=== PATIENT | female | born 1945 | race Caucasian/White ===

== ENCOUNTER 2017-06-07 17:46 | Emergency (ER) | payer OTHER ==
[~2017-06-07] VITALS: Ht 139.7 cm; Wt 65.1 kg
[2017-06-07 18:03] VITALS: BP 136/80
--- NOTE | 2017-06-07 19:30 | NUR ---
71/F C/O 04/14 PAIN TO RT SHOULDER/ARM S/P CARRYING HER GRANDDAUGHTER TODAY. PT STATES " I HEAR CRACK ON MY SHOULDER". MILD EDEMA NOTED ON RT SHOULDER WITH BRUISES TO RAC NOTED. +[facility] WITH LIMITED ROM D/T PAIN. PMH: DM, HTN. DENIES OTC AT HOME FOR PAIN.
[2017-06-07] MEDS ORDERED: HYDROcodone/APAP 5/325 MG 1 TAB TAB PO ONE (19:35)
[2017-06-07] MEDS ORDERED: KETOROLAC 30 MG/ML VIAL IM ONE (19:35)
--- NOTE | 2017-06-07 20:15 | NUR ---
Patient discharged with v/s stable. Written and verbal after care instructions given and explained. Patient alert, oriented and verbalized understanding of instructions. Ambulatory with steady gait. All questions addressed prior to discharge. ID band removed. Patient advised to follow up with PMD. Rx of NAPROSYN 500MG ONE TAB 2 TIMES A DAY PRN PRN given. Patient educated on indication of medication including possible reaction and side effects. Opportunity to ask questions provided and answered.
[2017-06-07 20:28] VITALS: BP 132/78
== END 2017-06-07 20:15 | disposition home or self-care (01) ==
LOC: MED 17:46
DX: M66.821 Spontaneous rupture of other tendons, right upper arm (principal)
CPT/HCPCS: 73030; 73060; 73080; 96372; 99284; J1885

== ENCOUNTER 2020-05-27 14:08 | Emergency (ER) | payer OTHER ==
[~2020-05-27] VITALS: Ht 154.9 cm; Wt 65.8 kg
[2020-05-27 14:10] VITALS: BP 152/73
--- NOTE | 2020-05-27 14:22 | NUR ---
AMBULATED TO BED 7
--- NOTE | 2020-05-27 14:32 | NUR ---
74 Y/O FEMALE PRESENTS TO ER WITH C/O NECK, AND LBP X 8 DAYS. 9/10 PAIN. LOWER BACK IS TTP, ALSO C/O LEFT POSTERIOR LUNG PAIN. PT DENIES INJURY/TRAUMA TO AREA, SOB, DYSPNEA, DYSURIA, FEVER, COUGH, N/V/D, CHILLS, HEMATURIA, OR RADIATING PAIN TO ABDOMEN. PT IS CITIZEN OF [place] SPEAK[place]. A&O X4, VSS, R/R EQUAL, AND UNLABORED. SIDE RAIL X1, BED IN LOW POSITION, WILL CONTINUE TO MONITOR. NKDA PMH: HTN; DM; HYPERLIPIDEMIA
[2020-05-27] MEDS ORDERED: KETOROLAC 60 MG/2 ML VIAL IM ONE (15:25)
--- NOTE | 2020-05-27 15:32 | NUR ---
PT RESTING IN BED TALKING ON PHONE. VSS. R/R EQUAL, AND UNLABORED. SIDE RAIL X1, BED IN LOW POSITION, WILL CONTINUE TO MONITOR.
[2020-05-27] MEDS ORDERED: MORPHINE SULFATE 4 MG/ML SYR IM ONE (16:10)
--- NOTE | 2020-05-27 16:20 | NUR ---
Patient discharged with v/s stable. Written and verbal after care instructions given and explained. Patient alert, oriented and verbalized understanding of instructions. WHEELCHAIR TO LOBBY, TO WAIT FOR GRANDDAUGHTER. All questions addressed prior to discharge. ID band removed. Patient advised to follow up with PMD. Rx of MOTRIN, NORCO, CIPRO given. Patient educated on indication of medication including possible reaction and side effects. Opportunity to ask questions provided and answered.
[2020-05-27 16:34] VITALS: BP 152/73
== END 2020-05-27 16:20 | disposition home or self-care (01) ==
LOC: MED 14:08
DX: N12 Tubulo-interstitial nephritis, not specified as acute or chronic (principal); M54.2 Cervicalgia; E11.9 Type 2 diabetes mellitus without complications; I10 Essential (primary) hypertension
CPT/HCPCS: 81002; 87086; 96372; 99284; J1885; J2270

== ENCOUNTER 2020-12-11 13:34 | Emergency (ER) | payer OTHER ==
[~2020-12-11] VITALS: Ht 149.9 cm; Wt 68.5 kg
[2020-12-11 13:47] VITALS: BP 150/73
--- NOTE | 2020-12-11 13:51 | NUR ---
PT AMBULATED TO BED 8.
--- NOTE | 2020-12-11 14:09 | NUR ---
75 Y/O F BIB SELF FROM HOME, PATIENT PRESENTS TO ED WITH L FOOT PAIN THAT STARTED 4 DAYS AGO. PT STATES SHE OPENED THE FRIDGE AND HAD FROZEN CHICKEN THAT FELL ONTO HER FOOT. UPON INSEPCTION, PT IS ABLE TO AMBULATE WITH CANE, AMBLE TO FLEX AND EXTEND EXTREMITIES, SWELLING, REDNESS, AND BRUISING ON DIGITS AND ANKLE. PT CAP REFILL <3 SECONDS, PEDAL PULSES PRESENT. PT STATES SHE HAS NUMBING SENSATION IN HER TOES. DENIES N/V/D; SKIN IS PINK/WARM/DRY; AAOX4 WITH EVEN AND STEADY GAIT; LUNGS CLEAR BL; HR EVEN AND REGULAR; PT DENIES ANY FEVER, CP, SOB, OR COUGH AT THIS TIME; PATIENT STATES PAIN OF 9/10 AT THIS TIME; VSS; PATIENT POSITIONED FOR COMFORT; HOB ELEVATED; BEDRAILS UP X2; BED DOWN. ER MD MADE AWARE OF PT STATUS. PMH: DM2, ARTHRITIS, HIGH CHOLESTROL, HTN NKA
[2020-12-11] MEDS ORDERED: ACET-10509 PO (15:08)
[2020-12-11] MEDS: KETOROLAC 30 MG/ML VIAL IM ONE (15:27)
--- NOTE | 2020-12-11 15:30 | NUR ---
PT'S LEFT LOWER EXTREMITY WAS SPLINTED WITH A FABRICATED POSTERIOR SHORT LEG SPLINT. PT WAS GIVEN CRUTCHES AND A DEMONSTRATION ON HOW TO USE IT. PT UNDERSTOOD AND DEMONSTRATED HOW TO USE THE CRUTCHES SAFELY. HUDSON NOTIFIED.
[2020-12-11 15:34] VITALS: BP 150/73
--- NOTE | 2020-12-11 15:34 | NUR ---
Patient discharged with v/s stable. Written and verbal after care instructions given and explained. Patient alert, oriented and verbalized understanding of instructions. Ambulatory with to car. All questions addressed prior to discharge. ID band removed. Patient advised to follow up with PMD. Rx of ACETAMINOPHEN given. Patient educated on indication of medication including possible reaction and side effects. Opportunity to ask questions provided and answered.
== END 2020-12-11 15:29 | disposition home or self-care (01) ==
LOC: MED 13:34
DX: S90.32XA Contusion of left foot, initial encounter (principal); E11.9 Type 2 diabetes mellitus without complications; I10 Essential (primary) hypertension; E78.00 Pure hypercholesterolemia, unspecified; W22.8XXA Striking against or struck by other objects, initial encounter; Y93.89 Activity, other specified; Y92.89 Other specified places as the place of occurrence of the external cause; Y99.8 Other external cause status
CPT/HCPCS: 29515; 73630; 96372; 99283; J1885

== ENCOUNTER 2020-12-18 13:45 | Emergency (ER) | payer OTHER ==
[~2020-12-18] VITALS: Ht 147.3 cm; Wt 74.4 kg
[~2020-12-18 13:45] MED LIST: ACET-10509 PO
[2020-12-18 13:53] VITALS: BP 149/81
[2020-12-18] MEDS ORDERED: CEPH-588 PO (14:08)
[2020-12-18 14:13] VITALS: BP 149/81
== END 2020-12-18 14:14 | disposition home or self-care (01) ==
LOC: MED 13:45
DX: L03.115 Cellulitis of right lower limb (principal); E11.9 Type 2 diabetes mellitus without complications; I10 Essential (primary) hypertension; Z79.899 Other long term (current) drug therapy
CPT/HCPCS: 99283

== ENCOUNTER 2021-01-27 21:56 | Emergency (ER) | payer OTHER ==
[~2021-01-27] VITALS: Ht 149.9 cm; Wt 64.4 kg
[~2021-01-27 21:56] MED LIST changes: +CEPH-588 PO
[2021-01-27 22:15] VITALS: BP 152/79
--- NOTE | 2021-01-27 22:18 | NUR ---
TO LOBBY A/W BED AMBULATORY
--- NOTE | 2021-01-27 23:05 | NUR ---
PT BIB SELF FOR C/O HEMATURIA AND FREQUENCY X 1 DAY. PT DENIES PAIN OR DISCOMFORT TO ABDOMEN TO FLANK PAIN. PT STATES SHE IS URINATING MORE THAN USUAL AND FEELS A "TINGLING" WHEN SHE URINATES. PT DENIES FEVER, CHILLS, N/V/D, CP OR SOB. HX: DM, HTN, HIGH CHOLESTEROL ALLERGIES: NKA
--- NOTE | 2021-01-27 23:15 | NUR ---
ACCUCHECK: BLOOD SUGAR 127.
[2021-01-28] MEDS ORDERED: cefTRIAXone 1,000 MG in LIDOCAINE MPF 1% 2.1 ML IM ONE (01:10)
[2021-01-28] MEDS ORDERED: KETOROLAC 60 MG/2 ML VIAL IM ONE (01:10)
[2021-01-28] MEDS ORDERED: PHEN-1877 PO (01:18)
[2021-01-28] MEDS ORDERED: NITR100C7 PO (01:18)
[2021-01-28] MEDS ORDERED: LIDOCAINE MPF 1% 5 ML ONE (01:32)
[2021-01-28] MEDS ORDERED: cefTRIAXone 1,000 MG VIAL ONE (01:32)
[2021-01-28 01:37] LABS: BILIRUBIN,URINE NEGATIVE (NEGATIVE); BLOOD, URINE 3+ (NEGATIVE); LEUKOCYTE ESTERASE ,URINE 2+ (NEGATIVE); NITRITE, URINE POSITIVE (NEGATIVE); PH,URINE 7.5 (5.0-9.0); UGLUCOSE TRACE (NEGATIVE)
[2021-01-28 01:38] LABS: APPEARANCE,URINE BLOODY (CLEAR); COLOR,URINE BLOODY (YELLOW)
[2021-01-28 01:40] LABS: RBC,URINE TOO NUMEROUS TO COUN /HPF (0-5)
--- NOTE | 2021-01-28 01:43 | NUR ---
d/c by Dr. Vazquez with VSS and rx of nitrofurantoin and pyridium
== END 2021-01-28 01:44 | disposition home or self-care (01) ==
LOC: MED 21:56
DX: N39.0 Urinary tract infection, site not specified (principal); E78.00 Pure hypercholesterolemia, unspecified; E11.9 Type 2 diabetes mellitus without complications; I10 Essential (primary) hypertension; Z79.899 Other long term (current) drug therapy
CPT/HCPCS: 81001; 87086; 96372; 99284; J0696; J1885; J2001

== ENCOUNTER 2021-06-14 12:47 | Emergency (ER) | payer OTHER ==
[~2021-06-14] VITALS: Ht 149.9 cm; Wt 69.4 kg
[~2021-06-14 12:47] MED LIST changes: +NITR100C7 PO; +PHEN-1877 PO
[2021-06-14 13:06] VITALS: BP 144/83
[2021-06-14 15:03] LABS: BASOPHILS % (AUTO) 0.4 % (0.0-2.0); EOSINOPHILS # (AUTO) 0.1 K/uL (0-0.4); EOSINOPHILS % (AUTO) 0.5 % (0.0-4.0); HEMATOCRIT 38.4 % (36-48); HEMOGLOBIN 12.9 g/dL (12.0-16.0); LYMPHOCYTES # (AUTO) 1.3 K/uL (2.5-16.5); LYMPHOCYTES % (AUTO) 10.7 % (20.5-51.1); MEAN CORPUSCULAR HEMOGLOBIN 31 pg (27-31); MEAN CORPUSCULAR HGB CONC 34 g/dL (33-37); MEAN CORPUSCULAR VOLUME 93.2 fL (80-94); MONOCYTES # (AUTO) 0.6 K/uL (0.8-1.0); MONOCYTES % (AUTO) 5.2 % (1.7-9.3); NEUTROPHILS # (AUTO) 10.1 K/uL (1.8-7.7); NEUTROPHILS % (AUTO) 83.2 % (42.2-75.2); PLATELET COUNT (AUTO) 375 K/uL (140-450); RED BLOOD CELL COUNT(AUTO) 4.12 MIL/uL (4.20-5.40); RED CELL DISTRIBUTION WIDTH 12.5 % (11.6-13.7); WHITE BLOOD COUNT (AUTO) 12.2 K/uL (4.8-10.8)
[2021-06-14 15:28] LABS: ALBUMIN 4.2 g/dL (3.4-5.0); ANION GAP 13.6 (8-16); ASPARTATE AMINOTRANSFERASE 21 U/L (15-37); CARBON DIOXIDE 26.7 mmol/L (21-32); CHLORIDE 99 mmol/L (98-107); CREATININE 0.9 mg/dL (0.6-1.3); GLUCOSE 129 mg/dL (74-106); LIPASE 260 U/L (73-393); POTASSIUM 4.3 mmol/L (3.5-5.1); SODIUM SERUM 135 mmol/L (136-145); TOTAL BILIRUBIN 0.7 mg/dL (0.0-1.0); UREA NITROGEN, BLOOD 20 mg/dL (7-18)
[2021-06-14] MEDS ORDERED: ACET-2619 PO (17:48)
[2021-06-14] MEDS ORDERED: IBUP-2213 PO (17:48)
[2021-06-14 17:55] VITALS: BP 121/70
== END 2021-06-14 17:55 | disposition home or self-care (01) ==
LOC: MED 12:47
DX: M25.512 Pain in left shoulder (principal); E11.9 Type 2 diabetes mellitus without complications; I10 Essential (primary) hypertension; E78.5 Hyperlipidemia, unspecified; D49.6 Neoplasm of unspecified behavior of brain
CPT/HCPCS: 36415; 71045; 73030; 80053; 83690; 84484; 85025; 93005; 99285; Q0092

== ENCOUNTER 2023-07-18 20:32 | Inpatient (IN) | payer OTHER ==
[~2023-07-18] VITALS: Ht 154.9 cm; Wt 67.6 kg
[~2023-07-18 20:32] MED LIST changes: +ACET-2619 PO; +IBUP-2213 PO
[2023-07-18 20:47] VITALS: BP 166/74; PULSE 118; RESP 19; TEMP 99.8; O2SAT 99
[2023-07-18] MEDS ORDERED: cefTRIAXone 1,000 MG in DEXT 5% MINI-BAG PLUS 50 ML IV ONE (21:25)
[2023-07-18] MEDS ORDERED: NACL 0.9% 1,000 ML IV SCH (21:25)
[2023-07-18] MEDS ORDERED: cefTRIAXone 1,000 MG VIAL ONE (21:38)
[2023-07-18] MEDS ORDERED: ACETAMINOPHEN EXTRA STRENGTH 500 MG TAB PO ONE (21:45)
[2023-07-18 21:51] LABS: BASOPHILS % (AUTO) 0.1 % (0.0-2.0); HEMATOCRIT 34.6 % (36-48); HEMOGLOBIN 11.6 g/dL (12.0-16.0); LYMPHOCYTES # (AUTO) 0.4 K/uL (2.5-16.5); LYMPHOCYTES % (AUTO) 2.9 % (20.5-51.1); MEAN CORPUSCULAR HEMOGLOBIN 31 pg (27-31); MEAN CORPUSCULAR HGB CONC 34 g/dL (33-37); MEAN CORPUSCULAR VOLUME 92.7 fL (80-94); MONOCYTES # (AUTO) 0.4 K/uL (0.8-1.0); NEUTROPHILS # (AUTO) 12.4 K/uL (1.8-7.7); PLATELET COUNT (AUTO) 255 K/uL (140-450); RED BLOOD CELL COUNT(AUTO) 3.73 MIL/uL (4.20-5.40); RED CELL DISTRIBUTION WIDTH 12.9 % (11.6-13.7); WHITE BLOOD COUNT (AUTO) 13.2 K/uL (4.8-10.8)
[2023-07-18 22:01] LABS: ANION GAP 12.6 (8-16); CALCIUM 8.3 mg/dL (8.5-10.1); CARBON DIOXIDE 25.3 mmol/L (21-32); CHLORIDE 99 mmol/L (98-107); CREATININE 0.9 mg/dL (0.6-1.3); GLUCOSE 291 mg/dL (74-106); POTASSIUM 3.9 mmol/L (3.5-5.1); SODIUM SERUM 133 mmol/L (136-145); UREA NITROGEN, BLOOD 13 mg/dL (7-18)
[2023-07-18 22:10] LABS: LACTIC ACID 1.9 mmol/L (0.4-2.0)
[2023-07-18 22:14] LABS: FLU A ANTIGEN negative (NEGATIVE); FLU B ANTIGEN negative (NEGATIVE)
[2023-07-18] MEDS ORDERED: KETOROLAC 30 MG/ML VIAL IVP ONE (22:20)
[2023-07-18 22:26] LABS: APPEARANCE,URINE CLEAR (CLEAR); BILIRUBIN,URINE NEGATIVE (NEGATIVE); BLOOD, URINE 2+ (NEGATIVE); COLOR,URINE YELLOW (YELLOW); LEUKOCYTE ESTERASE ,URINE 2+ (NEGATIVE); NITRITE, URINE POSITIVE (NEGATIVE); PROTEIN,URINE 1+ (NEGATIVE); UGLUCOSE 1+ (NEGATIVE)
[2023-07-18 22:29] LABS: BACTERIA,URINE >30 (MANY) /HPF (None Seen); MUCUS,URINE 1+ /LPF (None Seen); SQUAMOUS EPITHELIAL CELL,UR 0-3 (FEW) /LPF (0-3 (FEW)); WBC,URINE TOO MANY TO COUNT /HPF (0-5)
[2023-07-18 22:33] LABS: RSV Negative (NEGATIVE)
[2023-07-19] VITALS (8 sets, daily range): BP systolic 118; BP diastolic 60; PULSE 76–129; RESP 20–26; TEMP 98; O2SAT 92–100
[2023-07-19] MEDS ORDERED: MAGNESIUM OXIDE 400 MG TAB PO PRN (00:10)
[2023-07-19] MEDS ORDERED: MAG SULF 2000 MG/WATER PREMIX 50 ML IV PRN (00:10)
[2023-07-19] MEDS ORDERED: ONDANSETRON 4 MG/2 ML VIAL IVP PRN ×3 (00:10→14:20)
[2023-07-19] MEDS ORDERED: HYDROcodone/APAP 5/325 MG 1 TAB TAB PO PRN (00:10)
[2023-07-19] MEDS ORDERED: ACETAMINOPHEN 325 MG TAB PO PRN (00:10)
[2023-07-19] MEDS ORDERED: POTASSIUM CHLORIDE 10 MEQ TABER PO PRN (00:10)
[2023-07-19] MEDS ORDERED: KCL 20 MEQ IN 100 mL PREMIX 200 ML IV PRN (00:10)
[2023-07-19] MEDS: NACL 0.9% 1,000 ML IV SCH ×3 (00:27→15:01)
[2023-07-19] MEDS ORDERED: ALBUTEROL SULFATE/IPRATROPIU 3 ML SOL IH ONE ×2 (08:07→08:20)
[2023-07-19] MEDS ORDERED: ALBUTEROL SULFATE/IPRATROPIU 3 ML SOL IH SCH (08:15)
[2023-07-19] MEDS ORDERED: ALBUTEROL 0.083% 2.5 MG/3 ML NEBU INH ONE ×2 (08:20)
[2023-07-19] MEDS ORDERED: MORPHINE SULFATE 2 MG/ML SYR IVP PRN (14:20)
[2023-07-19] MEDS ORDERED: LORazepam 1 MG TAB PO PRN (14:30)
[2023-07-20] VITALS (15 sets, daily range): BP systolic 118–142; BP diastolic 59–82; PULSE 20–112; RESP 18–37; TEMP 98–99.6; O2SAT 94–100
[2023-07-20] MEDS ORDERED: cefTRIAXone 1,000 MG VIAL ONE (01:19)
[2023-07-20] MEDS: NACL 0.9% 1,000 ML IV SCH (01:26)
[2023-07-20] MEDS ORDERED: ALBUTEROL SULFATE/IPRATROPIU 3 ML SOL IH PRN (04:15)
[2023-07-20] MEDS ORDERED: ALBUTEROL SULFATE/IPRATROPIU 3 ML SOL IH ONE (04:15)
[2023-07-20] MEDS ORDERED: FUROSEMIDE 40 MG/4 ML VIAL IVP ONE (05:13)
[2023-07-20] MEDS ORDERED: FUROSEMIDE 40 MG/4 ML VIAL IVP STA (05:16)
[2023-07-20 06:34] LABS: BASOPHILS % (AUTO) 0.2 % (0.0-2.0); EOSINOPHILS % (AUTO) 0.1 % (0.0-4.0); HEMATOCRIT 32.8 % (36-48); HEMOGLOBIN 11.1 g/dL (12.0-16.0); LYMPHOCYTES # (AUTO) 0.6 K/uL (2.5-16.5); LYMPHOCYTES % (AUTO) 3.4 % (20.5-51.1); MEAN CORPUSCULAR HEMOGLOBIN 31 pg (27-31); MEAN CORPUSCULAR HGB CONC 34 g/dL (33-37); MONOCYTES # (AUTO) 0.9 K/uL (0.8-1.0); MONOCYTES % (AUTO) 5.2 % (1.7-9.3); NEUTROPHILS # (AUTO) 15.2 K/uL (1.8-7.7); NEUTROPHILS % (AUTO) 91.1 % (42.2-75.2); PLATELET COUNT (AUTO) 239 K/uL (140-450); RED BLOOD CELL COUNT(AUTO) 3.52 MIL/uL (4.20-5.40); RED CELL DISTRIBUTION WIDTH 12.7 % (11.6-13.7); WHITE BLOOD COUNT (AUTO) 16.7 K/uL (4.8-10.8)
[2023-07-20 06:37] LABS: MAGNESIUM 1.8 mg/dL (1.8-2.4); PHOSPHORUS 2.6 mg/dL (2.5-4.9)
[2023-07-20 06:38] LABS: ANION GAP 14.5 (8-16); CALCIUM 7.9 mg/dL (8.5-10.1); CARBON DIOXIDE 21.5 mmol/L (21-32); CHLORIDE 104 mmol/L (98-107); CREATININE 0.9 mg/dL (0.6-1.3); GLUCOSE 227 mg/dL (74-106); SODIUM SERUM 136 mmol/L (136-145); UREA NITROGEN, BLOOD 14 mg/dL (7-18)
[2023-07-20] MEDS: ALBUTEROL SULFATE/IPRATROPIU 3 ML SOL IH SCH ×3 (07:19→20:08)
[2023-07-20] MEDS ORDERED: FUROSEMIDE 40 MG/4 ML VIAL IVP SCH ×2 (09:00→13:00)
[2023-07-20] MEDS ORDERED: DEXTROSE 50% 50 ML SYR IVP PRN (10:30)
[2023-07-20] MEDS: INSULIN LISPRO SLIDING SCALE 100 UNITS/ML VIAL SUBQ PRN ×3 (11:26→21:16)
[2023-07-20] MEDS: BLOOD GLUCOSE MONITORING 1 DEV DEV FS SCH ×3 (11:49→21:11)
[2023-07-20] MEDS: FUROSEMIDE 40 MG/4 ML VIAL IVP SCH ×2 (12:40→21:07)
[2023-07-21] VITALS (13 sets, daily range): BP systolic 107–138; BP diastolic 50–71; PULSE 89–114; RESP 18–20; TEMP 97.5–98.9; O2SAT 94–100
[2023-07-21] MEDS: ALBUTEROL SULFATE/IPRATROPIU 3 ML SOL IH SCH ×4 (00:45→19:25)
[2023-07-21] MEDS: FUROSEMIDE 40 MG/4 ML VIAL IVP SCH ×3 (04:52→20:03)
[2023-07-21] MEDS: INSULIN LISPRO SLIDING SCALE 100 UNITS/ML VIAL SUBQ PRN ×4 (06:39→20:12)
[2023-07-21 07:37] LABS: BASOPHILS # (AUTO) 0.1 K/uL (0.00-0.22); BASOPHILS % (AUTO) 0.5 % (0.0-2.0); EOSINOPHILS # (AUTO) 0.1 K/uL (0-0.4); EOSINOPHILS % (AUTO) 0.4 % (0.0-4.0); HEMATOCRIT 34.3 % (36-48); HEMOGLOBIN 11.7 g/dL (12.0-16.0); LYMPHOCYTES # (AUTO) 0.7 K/uL (2.5-16.5); MEAN CORPUSCULAR HEMOGLOBIN 31 pg (27-31); MEAN CORPUSCULAR HGB CONC 34 g/dL (33-37); MONOCYTES % (AUTO) 7.8 % (1.7-9.3); NEUTROPHILS # (AUTO) 11.3 K/uL (1.8-7.7); NEUTROPHILS % (AUTO) 86.3 % (42.2-75.2); PLATELET COUNT (AUTO) 259 K/uL (140-450); RED BLOOD CELL COUNT(AUTO) 3.73 MIL/uL (4.20-5.40); RED CELL DISTRIBUTION WIDTH 12.8 % (11.6-13.7); WHITE BLOOD COUNT (AUTO) 13.1 K/uL (4.8-10.8)
[2023-07-21] MEDS: BLOOD GLUCOSE MONITORING 1 DEV DEV FS SCH ×4 (07:38→20:07)
[2023-07-21 07:47] LABS: ANION GAP 12.5 (8-16); CALCIUM 9.1 mg/dL (8.5-10.1); CARBON DIOXIDE 26.1 mmol/L (21-32); CHLORIDE 100 mmol/L (98-107); CREATININE 1.1 mg/dL (0.6-1.3); GLUCOSE 218 mg/dL (74-106); POTASSIUM 4.6 mmol/L (3.5-5.1); SODIUM SERUM 134 mmol/L (136-145); UREA NITROGEN, BLOOD 16 mg/dL (7-18)
[2023-07-21 07:49] LABS: MAGNESIUM 1.9 mg/dL (1.8-2.4); PHOSPHORUS 3.7 mg/dL (2.5-4.9)
[2023-07-21] MEDS: AZITHROMYCIN 500 MG in DEXTROSE 5% 250 ML IV SCH (15:31)
[2023-07-22] VITALS (7 sets, daily range): BP systolic 111–130; BP diastolic 58–80; PULSE 78–103; RESP 16–20; TEMP 97.5–98.2; O2SAT 95–99
[2023-07-22] MEDS: BLOOD GLUCOSE MONITORING 1 DEV DEV FS SCH ×4 (00:36→20:54)
[2023-07-22] MEDS: ALBUTEROL SULFATE/IPRATROPIU 3 ML SOL IH SCH ×4 (00:50→19:03)
[2023-07-22] MEDS: FUROSEMIDE 40 MG/4 ML VIAL IVP SCH ×3 (04:47→21:06)
[2023-07-22] MEDS: INSULIN LISPRO SLIDING SCALE 100 UNITS/ML VIAL SUBQ PRN ×4 (06:32→21:05)
[2023-07-22 07:10] LABS: BASOPHILS # (AUTO) 0.1 K/uL (0.00-0.22); BASOPHILS % (AUTO) 0.5 % (0.0-2.0); EOSINOPHILS # (AUTO) 0.1 K/uL (0-0.4); EOSINOPHILS % (AUTO) 1.2 % (0.0-4.0); HEMOGLOBIN 11.2 g/dL (12.0-16.0); LYMPHOCYTES # (AUTO) 0.7 K/uL (2.5-16.5); LYMPHOCYTES % (AUTO) 6.7 % (20.5-51.1); MEAN CORPUSCULAR HEMOGLOBIN 32 pg (27-31); MEAN CORPUSCULAR HGB CONC 35 g/dL (33-37); MEAN CORPUSCULAR VOLUME 90.6 fL (80-94); MONOCYTES # (AUTO) 1.1 K/uL (0.8-1.0); MONOCYTES % (AUTO) 10.4 % (1.7-9.3); NEUTROPHILS # (AUTO) 8.7 K/uL (1.8-7.7); NEUTROPHILS % (AUTO) 81.2 % (42.2-75.2); PLATELET COUNT (AUTO) 272 K/uL (140-450); RED BLOOD CELL COUNT(AUTO) 3.53 MIL/uL (4.20-5.40); RED CELL DISTRIBUTION WIDTH 12.6 % (11.6-13.7); WHITE BLOOD COUNT (AUTO) 10.7 K/uL (4.8-10.8)
[2023-07-22 07:31] LABS: ANION GAP 11.5 (8-16); CALCIUM 8.2 mg/dL (8.5-10.1); CARBON DIOXIDE 27.9 mmol/L (21-32); CHLORIDE 97 mmol/L (98-107); GLUCOSE 223 mg/dL (74-106); POTASSIUM 3.4 mmol/L (3.5-5.1); SODIUM SERUM 133 mmol/L (136-145); UREA NITROGEN, BLOOD 19 mg/dL (7-18)
[2023-07-22 07:49] LABS: MAGNESIUM 1.7 mg/dL (1.8-2.4); PHOSPHORUS 5.2 mg/dL (2.5-4.9)
[2023-07-22] MEDS: PANTOPRAZOLE 40 MG INJ VIAL IVP SCH (08:21)
[2023-07-22] MEDS ORDERED: POTA10TA70 PO (12:05)
[2023-07-22] MEDS ORDERED: CEFD300C3 PO (12:05)
[2023-07-22] MEDS ORDERED: FURO-570 PO (12:05)
[2023-07-22] MEDS: AZITHROMYCIN 500 MG in DEXTROSE 5% 250 ML IV SCH (15:31)
[2023-07-23 01:13] VITALS: PULSE 101; RESP 18; O2SAT 96
[2023-07-23] MEDS: ALBUTEROL SULFATE/IPRATROPIU 3 ML SOL IH SCH ×2 (01:13→08:12)
[2023-07-23] MEDS: FUROSEMIDE 40 MG/4 ML VIAL IVP SCH (05:05)
[2023-07-23 06:26] LABS: BASOPHILS % (AUTO) 0.3 % (0.0-2.0); EOSINOPHILS # (AUTO) 0.2 K/uL (0-0.4); EOSINOPHILS % (AUTO) 1.7 % (0.0-4.0); HEMATOCRIT 32.5 % (36-48); HEMOGLOBIN 11.4 g/dL (12.0-16.0); LYMPHOCYTES # (AUTO) 0.9 K/uL (2.5-16.5); LYMPHOCYTES % (AUTO) 8.3 % (20.5-51.1); MEAN CORPUSCULAR HEMOGLOBIN 32 pg (27-31); MEAN CORPUSCULAR HGB CONC 35 g/dL (33-37); MEAN CORPUSCULAR VOLUME 90.4 fL (80-94); MONOCYTES # (AUTO) 1.3 K/uL (0.8-1.0); NEUTROPHILS # (AUTO) 8.7 K/uL (1.8-7.7); NEUTROPHILS % (AUTO) 77.7 % (42.2-75.2); PLATELET COUNT (AUTO) 302 K/uL (140-450); RED BLOOD CELL COUNT(AUTO) 3.59 MIL/uL (4.20-5.40); RED CELL DISTRIBUTION WIDTH 12.6 % (11.6-13.7); WHITE BLOOD COUNT (AUTO) 11.2 K/uL (4.8-10.8)
[2023-07-23] MEDS: BLOOD GLUCOSE MONITORING 1 DEV DEV FS SCH (06:33)
[2023-07-23] MEDS: INSULIN LISPRO SLIDING SCALE 100 UNITS/ML VIAL SUBQ PRN (06:35)
[2023-07-23 06:42] LABS: MAGNESIUM 1.8 mg/dL (1.8-2.4); PHOSPHORUS 5.1 mg/dL (2.5-4.9)
[2023-07-23 06:48] LABS: ANION GAP 15.3 (8-16); CALCIUM 8.9 mg/dL (8.5-10.1); CARBON DIOXIDE 26.6 mmol/L (21-32); CHLORIDE 95 mmol/L (98-107); CREATININE 0.9 mg/dL (0.6-1.3); GLUCOSE 229 mg/dL (74-106); POTASSIUM 3.9 mmol/L (3.5-5.1); SODIUM SERUM 133 mmol/L (136-145); UREA NITROGEN, BLOOD 18 mg/dL (7-18)
[2023-07-23 08:00] VITALS: BP 119/52; PULSE 92; RESP 18; RESP 20; TEMP 98.2; O2SAT 93; O2SAT 96; O2SAT 98
[2023-07-23 08:13] VITALS: PULSE 91; RESP 16; O2SAT 99
[2023-07-23] MEDS: PANTOPRAZOLE 40 MG INJ VIAL IVP SCH (09:00)
== END 2023-07-23 09:35 | disposition home or self-care (01) | DRG 871 ==
LOC: MED 20:32 → MTU 07-19 00:06
PROVIDERS: ADMIT Hospitalist; ATTEND Hospitalist
PROC: 5A09357 Assistance with Respiratory Ventilation, Less than 24 Consecutive Hours, Continuous Positive Airway Pressure (ICD-10-PCS; principal; 2023-07-19)
DX: A41.9 Sepsis, unspecified organism (principal); J96.01 Acute respiratory failure with hypoxia; N39.0 Urinary tract infection, site not specified; E78.00 Pure hypercholesterolemia, unspecified; I10 Essential (primary) hypertension; E11.9 Type 2 diabetes mellitus without complications; Z20.822 Contact with and (suspected) exposure to COVID-19
CPT/HCPCS: 36415; 71045; 71275; 80048; 81001; 82948; 83605; 83735; 83880; 84100; 84484; 85025; 87040; 87081; 87086; 87420; 92526; 93005; 94640; 94660; 96365; 96375; 99285; C9113; J0456; J0696; J1644; J1815; J1885; J1940; J2270; J7060; J7613; Q9967